=== PATIENT | male | born 1985 | race Caucasian/White ===

== ENCOUNTER 2023-09-12 20:38 | Emergency (ER) | payer SELFPAY ==
[~2023-09-12] VITALS: Ht 177.8 cm; Wt 115.7 kg
[2023-09-12 21:06] VITALS: BP 127/69; PULSE 87; RESP 18; TEMP 97.5; O2SAT 100
[2023-09-12 21:52] LABS: BASOPHILS % (AUTO) 0.5 % (0.0-2.0); EOSINOPHILS # (AUTO) 0.1 K/uL (0-0.4); EOSINOPHILS % (AUTO) 1.7 % (0.0-4.0); HEMATOCRIT 34.8 % (36-52); LYMPHOCYTES # (AUTO) 1.9 K/uL (2.0-11.5); LYMPHOCYTES % (AUTO) 24.2 % (20.5-51.1); MEAN CORPUSCULAR HEMOGLOBIN 31 pg (27-31); MEAN CORPUSCULAR HGB CONC 34 g/dL (33-37); MONOCYTES # (AUTO) 0.7 K/uL (0.8-1.0); MONOCYTES % (AUTO) 8.9 % (1.7-9.3); NEUTROPHILS # (AUTO) 5.1 K/uL (1.8-7.7); NEUTROPHILS % (AUTO) 64.7 % (42.2-75.2); PLATELET COUNT (AUTO) 235 K/uL (140-450); RED BLOOD CELL COUNT(AUTO) 3.82 MIL/uL (4.20-6.10); RED CELL DISTRIBUTION WIDTH 13.3 % (11.6-13.7); WHITE BLOOD COUNT (AUTO) 7.9 K/uL (4.8-10.8)
[2023-09-12 22:00] LABS: ANION GAP 7.5 (8-16); CALCIUM 8.7 mg/dL (8.5-10.1); CARBON DIOXIDE 32.2 mmol/L (21-32); CREATININE 0.9 mg/dL (0.6-1.3); POTASSIUM 3.7 mmol/L (3.5-5.1)
[2023-09-12] MEDS ORDERED: BACITRACIN OINT 500 UNITS/GM PKT TP ONE (22:52)
[2023-09-12] MEDS: KETOROLAC 60 MG/2 ML VIAL IM ONE (22:58)
[2023-09-12] MEDS ORDERED: CEPH-588 PO (22:59)
[2023-09-12] MEDS ORDERED: NAPR-337 PO (22:59)
== END 2023-09-12 23:03 | disposition home or self-care (01) ==
LOC: MED 20:38
DX: S01.01XA Laceration without foreign body of scalp, initial encounter (principal); E11.9 Type 2 diabetes mellitus without complications; X58.XXXA Exposure to other specified factors, initial encounter; Y93.89 Activity, other specified; Y92.89 Other specified places as the place of occurrence of the external cause; Y99.8 Other external cause status
CPT/HCPCS: 36415; 70450; 80048; 85025; 96372; 99285; J1885